=== PATIENT | male | born 1950 | race Caucasian/White ===

== ENCOUNTER → 2020-07-02 | Outpatient (CLI) | payer MEDICARE ==
--- NOTE | 2020-07-02 14:23 | Diagnostic Imaging Report ---
EXAMINATION: CT Chest without contrast (lung screening). TECHNIQUE: Multiple contiguous axial images were obtained through the chest without the use of intravenous contrast according to lung cancer screening protocol. All CT scans use one or more of the following dose optimizing techniques: automated exposure control, MA and/or KvP adjustment based on a patient size and exam type, or iterative reconstruction. HISTORY: 51 pack year history of smoking. COMPARISON: None available. FINDINGS: Thyroid: The thyroid is normal. Mediastinum: Heart size is normal without significant pericardial effusion. Calcifications of the aorta and coronary vessels. Thoracic aorta is normal in caliber. No suspicious lymphadenopathy. Lungs and airways: Emphysematous changes of both lungs without consolidation, pleural effusion, or pneumothorax. There are a few reticulonodular opacities within the right upper lobe (series 2, image 97). No suspicious pulmonary nodule. The airways are normal. Upper abdomen: The subphrenic structures are normal. Musculoskeletal: Degenerative changes of the spine without suspicious osseous lesion or compression fracture. IMPRESSION: 1. No suspicious pulmonary nodules. Recommend continued low-dose annual CT screening. 2. Reticulonodular opacities within the right upper lobe which could represent atypical infection. LUNG-RADS CATEGORY: 1 MODIFIER: S Dictated by: Dictated on workstation # [id number]
--- NOTE | 2020-07-02 15:23 | Diagnostic Imaging Report ---
Indication: Right shoulder decreased range of motion. Time of exam: 12:57 PM 3 views of the right shoulder demonstrate mid 3rd clavicle fracture. The age of the fractures difficult to determine on these radiographs. Glenohumeral alignment and acromioclavicular alignment are normal. Impression: Mid 3rd clavicle fracture, age indeterminate. Dictated by: Dictated on workstation # [id number]
--- NOTE | 2020-07-02 15:24 | Diagnostic Imaging Report ---
INDICATION: Right clavicle injury. TIME OF EXAM: 12:56 p.m. EXAMINATION: Two views of the right clavicle were obtained. FINDINGS: There is a midshaft clavicle fracture which may be partially healed. Fracture apex is directed cephalad. Acromioclavicular alignment is normal. Glenohumeral alignment is normal. IMPRESSION: Age-indeterminate mid third right clavicle fracture. No other abnormality is detected. Dictated by: Dictated on workstation # [id number]
== END ==
LOC: RAD 12:38
PROVIDERS: ATTEND Family Medicine
DX: Z12.2 Encounter for screening for malignant neoplasm of respiratory organs (principal); S42.021A Displaced fracture of shaft of right clavicle, initial encounter for closed fracture; R91.8 Other nonspecific abnormal finding of lung field; F17.210 Nicotine dependence, cigarettes, uncomplicated
CPT/HCPCS: 71271; 73000; 73030

== ENCOUNTER → 2021-07-04 | Outpatient (CLI) | payer MEDICARE ==
--- NOTE | 2021-07-04 10:25 | Diagnostic Imaging Report ---
EXAMINATION: CT Lung Screening. INDICATION: 60 pack year smoking history, presents for low-dose CT screening. TECHNIQUE: Noncontrast, low-dose CT imaging performed according to the lung cancer screening protocol. Auto Exposure Controls were utilize during the CT exam to meet ALARA standards for radiation dose reduction. COMPARISON: 07/02/2020. FINDINGS: Stable chronic areas of biapical greater right subpleural curvilinear scarring are unchanged. There is some mild juxta fissural subsegmental atelectasis in the right upper lobe posteriorly. No endobronchial filling defect. There is some mild thickening of the central airways as well as bilateral air trapping, suggestive of a component of bronchitis. Some mild areas of subpleural scarring in the lingula and right middle lobe are noted. No suspicious or dominant pulmonary nodule. No thoracic adenopathy or aneurysm. No effusion, pneumothorax, or acute chest wall pathology. IMPRESSION: No suspicious lung mass. Continued annual low-dose CT screening followup is recommended. LUNG-RADS CATEGORY:Category 1. MODIFIER:None. OTHER SIGNIFICANT FINDINGS:As above. Dictated by: Dictated on workstation # [id number]
== END ==
LOC: RAD 10:15
PROVIDERS: ATTEND Nurse Practitioner Family
DX: Z12.11 Encounter for screening for malignant neoplasm of colon (principal); J98.4 Other disorders of lung; F17.210 Nicotine dependence, cigarettes, uncomplicated
CPT/HCPCS: 71271

== ENCOUNTER → 2022-07-05 | Outpatient (CLI) | payer MEDICARE ==
--- NOTE | 2022-07-05 12:18 | Diagnostic Imaging Report ---
EXAMINATION: CT Lung Screening. INDICATION: 17-gfhc-eive smoking history, current smoker. TECHNIQUE: Noncontrast, low-dose CT imaging performed according to the lung cancer screening protocol. Auto Exposure Controls were utilized during the CT exam to meet ALARA standards for radiation dose reduction. COMPARISON: 07/04/2021. FINDINGS: There is trace juxta-fissural scarring in the right upper lobe posteriorly where there is no evidence for residual acute infiltrate. No significant airway thickening. There is elevation of the lung volumes in a symmetric fashion. No suspicious pulmonary nodule or dominant lung mass. No findings of edema or pneumonia. There are coronary artery atherosclerotic vascular calcifications and a nonaneurysmal aorta. No findings of adenopathy in the axillae, jeronimo, or mediastinum. Tiny hiatal hernia is noted. The upper abdomen is nonacute. IMPRESSION: No findings of lung cancer. Continued annual low-dose CT screening follow-up is recommended. LUNG-RADS CATEGORY: 1. MODIFIER: None. OTHER SIGNIFICANT FINDINGS: Chronic coronary atherosclerotic calcifications. No acute appearing abnormality. Dictated by: Dictated on workstation # [id number]
== END ==
LOC: RAD 10:48
PROVIDERS: ATTEND Family Medicine
DX: Z12.2 Encounter for screening for malignant neoplasm of respiratory organs (principal); F17.210 Nicotine dependence, cigarettes, uncomplicated
CPT/HCPCS: 71271